=== PATIENT | female | born 1995 | race Caucasian/White ===

== ENCOUNTER 2022-03-30 11:45 | Inpatient (IN) ==
--- NOTE | 2022-03-30 11:46 | Emergency Department Note ---
Impression & Plan Depression with suicidal ideation ED Provider Note NAME: FLORIAN HE AGE: 26 SEX: F : 1995 ARRIVES VIA: Ambulance INFORMANT: Patient, ED PROVIDER(S): Angel Garcia MD CHIEF COMPLAINT: Suicidal ideation MEDICAL DECISION MAKING: Patient presented to concern for suicidal initiation ideation. The patient did have blood work completed. The patient has a normal white count H&H. The patient does have mild thrombocytosis at 409. Kidney function is unremarkable. Urinalysis with no signs of obvious infection. Tox screen negative. COVID-negative. Patient was seen medically cleared seen and evaluated by the psych manager rn case and referral was made. The patient was accepted for inpatient treatment through [facility] Prior /Outside records reviewed: None Differential diagnosis: Mood disorder, infection, hypoglycemia, electrolyte abnormalities, cardiac sources, intracerebral event, toxicologic, trauma, neurologic, as well as other pathologies. HPI: Patient presents due to concern for depressed mood and hopelessness. The patient has had associated suicidal ideation with fleeting thoughts states that she would not want to and does not want to but she has had thoughts about slitting her throat bleeding Bialis or even driving her car off of a farideh. Patient does have a known history of depression and is prescribed Wellbutrin and surgeries recently started on BuSpar. Patient denies any alcohol or tobacco use. The patient is employed and states that her job is going well. Patient states she has had poor sleep and appetite. Patient does complain of hopelessness there are concerns as her long-term boyfriend has had some chronic issues to he did have a recent inpatient stay but still feels like he did not get the help that he needs that she feels as though she is not can get the help that she needs and the patient has tried to call for outpatient follow-up but has not been on has been unable to obtain additional help. Patient denies any access to guns or weapons. No prior history of attempts of self-harm. Patient denies any HI or AVH. PAST MEDICAL HISTORY: See Below PAST SURGICAL HISTORY: See Below SOCIAL HISTORY: See Below HOME MEDICATIONS: See Below ALLERGIES: See Below VITALS: See Below PHYSICAL EXAMINATION: GENERAL: Tearful, nontoxic. EYE EXAM: Normal conjunctiva. PERRL, no anisocoria and EOM's grossly intact w/o pain. NECK: Supple, no nuchal rigidity, no adenopathy, non-tender. No signs of meningismus. FROM of the neck with good chin to chest and neck extension. No stridor. LUNGS: Clear to auscultation. Normal chest wall mechanics. HEART: NSR, no MRG. ABDOMEN: Abdomen soft, non-tender, normo-active bowel sounds, no masses, no rebound or guarding. BACK: No CVA TTP. SKIN: No rashes and no bruising. UPPER EXTREMITIES: Upper extremities are grossly normal. LOWER EXTREMITIES: Grossly normal, no edema. NEURO EXAM: A&O x3, cranial nerves II-XII grossly intact, normal speech, moves all 4 extremities. Psych: Tearful, positive SI, negative HI or AVH. Past Med/Surg History Medical History Depression Surgical History No pertinent past surgical history Social History Smoking Status: Never smoker Hx Alcohol Use: No Hx Substance Use: No Preferred Language: Angolan Communication Ability: Effective Field Investigator Required: No Beliefs That Will Affect Care: None Feels Safe at Home: Yes Gender Identity: Female Assistive Devices: None Allergies Allergies Allergy/AdvReac Type Severity Reaction Status Date / Time meloxicam Allergy Hives Verified 03/30/22 13:06 Home Meds Home Medications Medication Instructions Recorded Confirmed bupropion HCl 300 mg 24 hr tablet, 300 mg PO QAM 03/30/22 03/30/22 extended release buspirone 5 mg tablet 5 mg PO BID 03/30/22 03/30/22 hydroxyzine HCl 25 mg tablet 25 mg PO TID PRN Anxiety 03/30/22 03/30/22 loratadine 10 mg tablet (Claritin) 10 mg PO DAILY 03/30/22 03/30/22 Results & Data (ED) Vital Signs Vital Signs - 24 hr 03/30/22 11:33 03/30/22 11:33 03/30/22 13:33 Temperature 37.2 C Temperature Source Oral Pulse Rate 105 H Pulse Rate [Finger] 90 Pulse Rhythm Regular Pulse Rhythm [Finger] Regular Pulse Strength Normal Pulse Strength [Finger] Normal Respiratory Rate 22 22 18 Respiratory Effort / Characteristics Non-Labored Non-Labored Non-Labored Respiratory Depth Normal Normal Normal Respiratory Pattern Regular Regular Regular Blood Pressure 145/104 H Blood Pressure [Right Arm] 138/84 Blood Pressure Mean 117 Blood Pressure Mean [Right Arm] 102 Pulse Oximetry 97 99 Oxygen Delivery Method Room Air Room Air Sepsis Recent Fever Within 48 Hours No Sepsis New/Unexplained Change in Mental Status No Sepsis Action Taken by Nursing No Action Required Laboratory Data 03/30/22 12:00 03/30/22 12:00 Lab Results 03/30/22 03/30/22 03/30/22 Range/Units 12:00 12:00 12:00 WBC 7.68 (4.8-10.8) K/ul RBC 5.12 (3.93-5.22) M/uL Hgb 14.7 (12.0-16.0) g/dl Hct 42.3 (34.1-44.9) % MCV 82.6 (80.0-100.0) fL MCH 28.7 (25.0-34.0) pg MCHC 34.8 (32.0-36.0) g/dL RDW Std Deviation 37.4 (36.4-46.3) fL RDW Coeff of Shabbir 12.4 (11.5-14.5) % Plt Count 409 H (130-400) K/uL MPV 9.1 L (9.4-12.3) fL Immature Gran % (Auto) 0.3 % Neut % (Auto) 75.1 % Lymph % (Auto) 17.4 % Cherry % (Auto) 6.5 % Eos % (Auto) 0.3 % Baso % (Auto) 0.4 % Neut # (Auto) 5.77 (1.4-6.5) K/uL Lymph # (Auto) 1.34 (1.2-3.4) K/uL Cherry # (Auto) 0.50 (0.24-0.82) K/uL Eos # (Auto) 0.02 (0-0.50) K/uL Baso # (Auto) 0.03 (0-0.2) K/uL Immature Gran # (Auto) 0.02 (0.00-0.02) K/uL Sodium 139 (136-145) mmol/L Potassium 3.5 (3.5-5.1) mmol/L Chloride 106 (98-107) mmol/L Carbon Dioxide 25 (21-32) mmol/L Anion Gap 8 (3-11) BUN 7 (6-23) mg/dl Creatinine 0.84 (0.6-1.2) mg/dl Est Cr Clr Drug Dosing 108.8 ml/min Est GFR ( Amer) 110.4 ml/min Est GFR (Non-Af Amer) 95.3 ml/min BUN/Creatinine Ratio 8.3 L (10-20) Glucose 90 (70-99(Fasting)) mg/dl Calcium 9.4 (8.5-10.1) mg/dl Total Bilirubin 1.2 H (0.2-1.0) mg/dl AST 14 (13-39) U/L ALT 9 (7-52) U/L Alkaline Phosphatase 60 (34-104) U/L Total Protein 7.5 (6.0-8.3) gm/dl Albumin 5.0 (3.4-5.0) gm/dl Globulin 2.5 (2.5-4.0) gm/dl Albumin/Globulin Ratio 2.0 (0.9-2) TSH 0.915 (0.300-4.500) uIu/ml Urine Color Urine Appearance (Clear) Urine pH (4.5-7.5) Ur Specific Midway (1.000-1.030) Urine Protein (Negative) Urine Glucose (UA) (Negative) Urine Ketones (Negative) Urine Blood (Negative) Urine Nitrite (Negative) Urine Bilirubin (Negative) Urine Urobilinogen (Negative) Ur Leukocyte Esterase (Negative) Urine WBC (Auto) (0-5) /hpf Urine RBC (Auto) (0-4) /hpf U Hyaline Cast (Auto) (0-5) /lpf U Epithel Cells (Auto) (0-5) /lpf Urine Bacteria (Auto) (Negative) Urine Test (Negative) Salicylates (3.0-30) mg/dl Urine Opiates Screen (Neg) Ur Methadone, Qual (Neg) Acetaminophen (10-30) ug/ml Urine Barbiturates (Neg) Ur Phencyclidine (PCP) (Neg) U Amphetamin/Meth Scrn (Neg) MDMA (Ecstasy) Screen (Neg) U Benzodiazepines Scrn (Neg) Ur Cocaine Metabolite (Neg) U Marijuana (THC) Screen (Neg) Ethyl Alcohol mg/dL (<10.0) mg/dl SARS-CoV-2, RNA, NAAT (NEGATIVE) 03/30/22 03/30/22 03/30/22 Range/Units 12:00 12:00 12:00 WBC (4.8-10.8) K/ul RBC (3.93-5.22) M/uL Hgb (12.0-16.0) g/dl Hct (34.1-44.9) % MCV (80.0-100.0) fL MCH (25.0-34.0) pg MCHC (32.0-36.0) g/dL RDW Std Deviation (36.4-46.3) fL RDW Coeff of Shabbir (11.5-14.5) % Plt Count (130-400) K/uL MPV (9.4-12.3) fL Immature Gran % (Auto) % Neut % (Auto) % Lymph % (Auto) % Cherry % (Auto) % Eos % (Auto) % Baso % (Auto) % Neut # (Auto) (1.4-6.5) K/uL Lymph # (Auto) (1.2-3.4) K/uL Cherry # (Auto) (0.24-0.82) K/uL Eos # (Auto) (0-0.50) K/uL Baso # (Auto) (0-0.2) K/uL Immature Gran # (Auto) (0.00-0.02) K/uL Sodium (136-145) mmol/L Potassium (3.5-5.1) mmol/L Chloride (98-107) mmol/L Carbon Dioxide (21-32) mmol/L Anion Gap (3-11) BUN (6-23) mg/dl Creatinine (0.6-1.2) mg/dl Est Cr Clr Drug Dosing ml/min Est GFR ( Amer) ml/min Est GFR (Non-Af Amer) ml/min BUN/Creatinine Ratio (10-20) Glucose (70-99(Fasting)) mg/dl Calcium (8.5-10.1) mg/dl Total Bilirubin (0.2-1.0) mg/dl AST (13-39) U/L ALT (7-52) U/L Alkaline Phosphatase (34-104) U/L Total Protein (6.0-8.3) gm/dl Albumin (3.4-5.0) gm/dl Globulin (2.5-4.0) gm/dl Albumin/Globulin Ratio (0.9-2) TSH (0.300-4.500) uIu/ml Urine Color Yellow Urine Appearance Clear (Clear) Urine pH 6.0 (4.5-7.5) Ur Specific [place]way 1.019 (1.000-1.030) Urine Protein Negative (Negative) Urine Glucose (UA) Negative (Negative) Urine Ketones 1+ H (Negative) Urine Blood Negative (Negative) Urine Nitrite Negative (Negative) Urine Bilirubin Negative (Negative) Urine Urobilinogen Negative (Negative) Ur Leukocyte Esterase Trace H (Negative) Urine WBC (Auto) 1-5 (0-5) /hpf Urine RBC (Auto) 0-4 (0-4) /hpf U Hyaline Cast (Auto) 1-5 (0-5) /lpf U Epithel Cells (Auto) 10-20 H (0-5) /lpf Urine Bacteria (Auto) Negative (Negative) Urine Test (Negative) Salicylates < 3.0 L (3.0-30) mg/dl Urine Opiates Screen (Neg) Ur Methadone, Qual (Neg) Acetaminophen < 3 L (10-30) ug/ml Urine Barbiturates (Neg) Ur Phencyclidine (PCP) (Neg) U Amphetamin/Meth Scrn (Neg) MDMA (Ecstasy) Screen (Neg) U Benzodiazepines Scrn (Neg) Ur Cocaine Metabolite (Neg) U Marijuana (THC) Screen (Neg) Ethyl Alcohol mg/dL < 10.0 (<10.0) mg/dl SARS-CoV-2, RNA, NAAT (NEGATIVE) 03/30/22 03/30/22 03/30/22 Range/Units 12:00 12:00 12:00 WBC (4.8-10.8) K/ul RBC (3.93-5.22) M/uL Hgb (12.0-16.0) g/dl Hct (34.1-44.9) % MCV (80.0-100.0) fL MCH (25.0-34.0) pg MCHC (32.0-36.0) g/dL RDW Std Deviation (36.4-46.3) fL RDW Coeff of Shabbir (11.5-14.5) % Plt Count (130-400) K/uL MPV (9.4-12.3) fL Immature Gran % (Auto) % Neut % (Auto) % Lymph % (Auto) % Cherry % (Auto) % Eos % (Auto) % Baso % (Auto) % Neut # (Auto) (1.4-6.5) K/uL Lymph # (Auto) (1.2-3.4) K/uL Cherry # (Auto) (0.24-0.82) K/uL Eos # (Auto) (0-0.50) K/uL Baso # (Auto) (0-0.2) K/uL Immature Gran # (Auto) (0.00-0.02) K/uL Sodium (136-145) mmol/L Potassium (3.5-5.1) mmol/L Chloride (98-107) mmol/L Carbon Dioxide (21-32) mmol/L Anion Gap (3-11) BUN (6-23) mg/dl Creatinine (0.6-1.2) mg/dl Est Cr Clr Drug Dosing ml/min Est GFR ( Amer) ml/min Est GFR (Non-Af Amer) ml/min BUN/Creatinine Ratio (10-20) Glucose (70-99(Fasting)) mg/dl Calcium (8.5-10.1) mg/dl Total Bilirubin (0.2-1.0) mg/dl AST (13-39) U/L ALT (7-52) U/L Alkaline Phosphatase (34-104) U/L Total Protein (6.0-8.3) gm/dl Albumin (3.4-5.0) gm/dl Globulin (2.5-4.0) gm/dl Albumin/Globulin Ratio (0.9-2) TSH (0.300-4.500) uIu/ml Urine Color Urine Appearance (Clear) Urine pH (4.5-7.5) Ur Specific Midway (1.000-1.030) Urine Protein (Negative) Urine Glucose (UA) (Negative) Urine Ketones (Negative) Urine Blood (Negative) Urine Nitrite (Negative) Urine Bilirubin (Negative) Urine Urobilinogen (Negative) Ur Leukocyte Esterase (Negative) Urine WBC (Auto) (0-5) /hpf Urine RBC (Auto) (0-4) /hpf U Hyaline Cast (Auto) (0-5) /lpf U Epithel Cells (Auto) (0-5) /lpf Urine Bacteria (Auto) (Negative) Urine Test Negative (Negative) Salicylates (3.0-30) mg/dl Urine Opiates Screen Neg (Neg) Ur Methadone, Qual Neg (Neg) Acetaminophen (10-30) ug/ml Urine Barbiturates Neg (Neg) Ur Phencyclidine (PCP) Neg (Neg) U Amphetamin/Meth Scrn Neg (Neg) MDMA (Ecstasy) Screen Neg (Neg) U Benzodiazepines Scrn Neg (Neg) Ur Cocaine Metabolite Neg (Neg) U Marijuana (THC) Screen Neg (Neg) Ethyl Alcohol mg/dL (<10.0) mg/dl SARS-CoV-2, RNA, NAAT NEGATIVE (NEGATIVE) Discharge Plan Visit Data Chief Complaint: Mental Health Evaluation ED Provider: Angel Garcia Discharge Problem: Depression with suicidal ideation Patient Disposition: Admitted As Inpatient Discharge Instructions Interventions: ED Discharge Assessment Last Done: 03/30/22 16:31
[2022-03-30 12:28] LABS: Appearance Urine Clear (Clear); Bacteria Urine Automated Negative (Negative); Bilirubin Urine Negative (Negative); Blood Urine Negative (Negative); Color Urine Yellow; Glucose Urine UA Negative (Negative); Ketones Urine 1+ (Negative); Leukocyte Esterase Urine Trace (Negative); Nitrite Urine Negative (Negative); Protein Urine Negative (Negative); RBC Urine Automated 0-4 /hpf (0-4); Specific Gravity Urine 1.019 (1.000-1.030); Urobilinogen Urine Negative (Negative)
[2022-03-30 12:37] LABS: Basophils # (auto) 0.03 K/uL (0-0.2); Basophils % (auto) 0.4 %; Eosinophils # (auto) 0.02 K/uL (0-0.50); Eosinophils % (auto) 0.3 %; Hematocrit (blood only) 42.3 % (34.1-44.9); Hemoglobin 14.7 g/dl (12.0-16.0); Immature Granulocytes # (auto) 0.02 K/uL (0.00-0.02); Immature Granulocytes % (auto) 0.3 %; Lymphocytes # (auto) 1.34 K/uL (1.2-3.4); Lymphocytes % (auto) 17.4 %; Mean Corpuscular Hemoglobin 28.7 pg (25.0-34.0); Mean Corpuscular Hgb Conc 34.8 g/dL (32.0-36.0); Mean Corpuscular Volume 82.6 fL (80.0-100.0); Mean Platelet Volume 9.1 fL (9.4-12.3); Monocytes % (auto) 6.5 %; Neutrophils # (auto) 5.77 K/uL (1.4-6.5); Neutrophils % (auto) 75.1 %; Platelet Count 409 K/uL (130-400); RDW Coefficient of Variation 12.4 % (11.5-14.5); RDW Standard Deviation 37.4 fL (36.4-46.3); Red Blood Count 5.12 M/uL (3.93-5.22); White Blood Count 7.68 K/ul (4.8-10.8)
[2022-03-30 12:51] LABS: Acetaminophen < 3 ug/ml (10-30); BUN Creatinine Ratio 8.3 (10-20); Bilirubin,Total 1.2 mg/dl (0.2-1.0); Calcium 9.4 mg/dl (8.5-10.1); Creatinine Clr Calc Pharmacy 108.8 ml/min; Est GFR (African American) 110.4 ml/min; Est GFR (Non-African American) 95.3 ml/min; Globulin 2.5 gm/dl (2.5-4.0); Potassium 3.5 mmol/L (3.5-5.1); Salicylate < 3.0 mg/dl (3.0-30); Total Protein 7.5 gm/dl (6.0-8.3)
[2022-03-30 13:14] LABS: Amphetamines+Metham, Urine Neg (Neg); Barbiturates, Urine Neg (Neg); Benzodiazepine, Urine Neg (Neg); Cocaine, Urine Neg (Neg); MDMA (Ecstacy), Urine Neg (Neg); Methadone, Urine Neg (Neg); Opiate, Urine Neg (Neg); Phencyclidine, Urine Neg (Neg)
[2022-03-30 13:30] LABS: Pregnancy Test, Urine Negative (Negative)
[2022-03-30] MEDS ORDERED: MAGNESIUM HYDROXIDE SUSP 30 ML UDC PO PRN (15:35)
[2022-03-30] MEDS ORDERED: BISMUTH SUBSALICYLATE LIQD 236 ML PO PRN (15:35)
[2022-03-30] MEDS ORDERED: SODIUM CHLORIDE 0.65% NA SOLN 45 ML (OCEAN) PRN (15:35)
[2022-03-30] MEDS ORDERED: ACETAMINOPHEN 325 MG TAB PO PRN (15:35)
[2022-03-30] MEDS ORDERED: hydrOXYzine HCl 25 MG TAB PO PRN (15:35)
[2022-03-30] MEDS ORDERED: ALUMINUM/MAGNESIUM SUSP 30 ML UDC PO PRN (15:35)
[2022-03-30] MEDS: hydrOXYzine HCl 25 MG TAB PO PRN (21:43)
--- NOTE | 2022-03-31 12:49 | Psychiatric Consultation ---
Date of Consultation March 31, 2022 Psych History History of Present Illness Risks/benefits/alternatives reviewed lithium for mood stabilization. Discussion included but was not limited to risks of toxicity in overdose and need for ongoing blood monitoring (levels, kidney function, and thyroid). The patient was made aware to avoid regular use of NSAIDs as can increase levels and that lithium may need to be held during GI or other illnesses that result in dehyrdation. LFORIAN HE is a 26-year-old F who currently lives in alone with , has a history of , and was admitted on 03/30/22 15:35 on a 201 voluntary 302 involuntary commitment for . Past Psychiatric History Current Psychiatric Diagnosis: MDD with SI Do You Have Access To A Gun?: No History of Previous Suicide Attempt: No Allergies Allergy/AdvReac Type Severity Reaction Status Date / Time meloxicam Allergy Hives Verified 03/30/22 13:06 Home Medications Medication Instructions Recorded Confirmed Type bupropion HCl 300 mg 24 hr tablet, 300 mg PO QAM 03/30/22 03/30/22 History extended release buspirone 5 mg tablet 5 mg PO BID 03/30/22 03/30/22 History hydroxyzine HCl 25 mg tablet 25 mg PO TID PRN Anxiety 03/30/22 03/30/22 History loratadine 10 mg tablet (Claritin) 10 mg PO DAILY 03/30/22 03/30/22 History Patient History Medical History Depression Surgical History No pertinent past surgical history Social History Smoking Status: Never smoker Hx Alcohol Use: No Hx Substance Use: No Preferred Language: [place] Communication Ability: Effective Photographic Restorer Required: No Beliefs That Will Affect Care: None Feels Safe at Home: Yes Gender Identity: Female Assistive Devices: None Physical Exam Mental Examination: Affect: Blunted Vital Signs (Past 24 Hours): Last Vital Signs Temp 36.8 C 03/31/22 06:37 Pulse 94 H 03/31/22 06:38 Resp 16 03/31/22 06:37 BP 118/77 03/31/22 06:38 Pulse Ox 99 03/30/22 16:26 O2 Del Method 03/30/22 16:26 Review of Systems All systems reviewed & are unremarkable except as noted in HPI & below Eyes: no tunnel vision (when seeing kangaroos) Results & Data (PSY) Laboratory Results 03/30/22 03/30/22 03/30/22 Range/Units 12:00 12:00 12:00 Sodium (136-145) mmol/L Potassium (3.5-5.1) mmol/L Chloride (98-107) mmol/L Carbon Dioxide (21-32) mmol/L Anion Gap (3-11) BUN (6-23) mg/dl Creatinine (0.6-1.2) mg/dl Est Cr Clr Drug Dosing ml/min Est GFR ( Amer) ml/min Est GFR (Non-Af Amer) ml/min BUN/Creatinine Ratio (10-20) Glucose (70-99(Fasting)) mg/dl Calcium (8.5-10.1) mg/dl Total Bilirubin (0.2-1.0) mg/dl AST (13-39) U/L ALT (7-52) U/L Alkaline Phosphatase (34-104) U/L Total Protein (6.0-8.3) gm/dl Albumin (3.4-5.0) gm/dl Globulin (2.5-4.0) gm/dl Albumin/Globulin Ratio (0.9-2) TSH (0.300-4.500) uIu/ml Urine Test Negative (Negative) Salicylates (3.0-30) mg/dl Urine Opiates Screen Neg (Neg) Ur Methadone, Qual Neg (Neg) Acetaminophen (10-30) ug/ml Urine Barbiturates Neg (Neg) Ur Phencyclidine (PCP) Neg (Neg) U Amphetamin/Meth Scrn Neg (Neg) MDMA (Ecstasy) Screen Neg (Neg) U Benzodiazepines Scrn Neg (Neg) Ur Cocaine Metabolite Neg (Neg) U Marijuana (THC) Screen Neg (Neg) Ethyl Alcohol mg/dL < 10.0 (<10.0) mg/dl 03/30/22 03/30/22 03/30/22 Range/Units 12:00 12:00 12:00 Sodium 139 (136-145) mmol/L Potassium 3.5 (3.5-5.1) mmol/L Chloride 106 (98-107) mmol/L Carbon Dioxide 25 (21-32) mmol/L Anion Gap 8 (3-11) BUN 7 (6-23) mg/dl Creatinine 0.84 (0.6-1.2) mg/dl Est Cr Clr Drug Dosing 108.8 ml/min Est GFR ( Amer) 110.4 ml/min Est GFR (Non-Af Amer) 95.3 ml/min BUN/Creatinine Ratio 8.3 L (10-20) Glucose 90 (70-99(Fasting)) mg/dl Calcium 9.4 (8.5-10.1) mg/dl Total Bilirubin 1.2 H (0.2-1.0) mg/dl AST 14 (13-39) U/L ALT 9 (7-52) U/L Alkaline Phosphatase 60 (34-104) U/L Total Protein 7.5 (6.0-8.3) gm/dl Albumin 5.0 (3.4-5.0) gm/dl Globulin 2.5 (2.5-4.0) gm/dl Albumin/Globulin Ratio 2.0 (0.9-2) TSH 0.915 (0.300-4.500) uIu/ml Urine Test (Negative) Salicylates < 3.0 L (3.0-30) mg/dl Urine Opiates Screen (Neg) Ur Methadone, Qual (Neg) Acetaminophen < 3 L (10-30) ug/ml Urine Barbiturates (Neg) Ur Phencyclidine (PCP) (Neg) U Amphetamin/Meth Scrn (Neg) MDMA (Ecstasy) Screen (Neg) U Benzodiazepines Scrn (Neg) Ur Cocaine Metabolite (Neg) U Marijuana (THC) Screen (Neg) Ethyl Alcohol mg/dL (<10.0) mg/dl Medications Administered Acetaminophen (Acetaminophen 325 Mg Tab) 650 mg PO Q4H PRN PRN Reason: Headache or Minor Fever Stop: 04/29/22 15:34 Last Admin: 03/30/22 17:46 Dose: 650 mg Documented By: DINORAH Hydroxyzine HCl (Hydroxyzine Hcl 25 Mg Tab) 50 mg PO HSZ PRN PRN Reason: Insomnia Stop: 04/29/22 15:34 Last Admin: 03/30/22 21:43 Dose: 50 mg Documented By: RDS Coding Level of Care Code Established Pt INP/OBS CONSULT LVL 3, 45 MIN Patient Type Established History Expanded Problem Focused Exam Problem Focused Medical Decision Making Moderate Complexity
[2022-03-31] MEDS ORDERED: LORazepam 0.5 MG TAB PO PRN (13:09)
--- NOTE | 2022-03-31 13:26 | History & Physical ---
Date of Service March 31, 2022 Impression / Recommendations Impression 26 yo female with a history of nonspecific depression and anxiety, briefly in therapy last year following an ED visit for panic, presented with SI in the context of stress reactive to boyfriend's health issues. (1) Depression with suicidal ideation: Plan The patient was admitted to the [facility] ([facility] mental health unit) on q15 min checks (behavioral with suicide precautions) for safety. The patient will participate in group, recreational, and milieu therapies and will be offered additional individual and family sessions as clinically appropriate. Pending availability of past med trials, will continue Wellbutrin XL 300 mg po qam. The patient responded well to this in the past and denies hx of seizures or ED symptoms. She has only been on the higher dose for 1 week. Given possible activation, d/c Buspar in favor of temporary use of prn Ativan 0.5 mg. Patient aware controlled/habit forming, and unclear if will be provided on discharge. Inventory Assets Strengths: intelligent, family oriented Needs: outpatient therapy, support in coping Suicide Risk Level Suicide Risk Level: High-Moderate (q15 min suicide checks) Risk Factors Assessment : Yes Do You Have Access To A Gun?: No Mental Health Diagnoses: Yes Substance Use Disorders: No Previous Attempt: No Family History of Suicide: No Previous Psychiatric Hospitalization: No Protective Factors Assessment Employed: Yes ([employer] works from home) Stable Relationships: Yes (but stressor) Supportive Family: Yes Psychiatric History Identifying Data FLORIAN HE is a 26-year-old F who currently lives in [place], has a history of depression and anxiety since high school, and was admitted on 03/30/22 15:35 on a 201 voluntary commitment for SI. Chief Complaint "There is just so much all at once, I needed to focus on me for a bit". History of Present Illness Patient lives with her boyfriend of 6+ years. He has a history of cancer and has been dealing with a variety of somatic issues and was recently psychiatrically hospitalized for severe anxiety. He has since had a CT scan that showed a possible lesion on his liver which needs additional work up. This was "on top of everything else." Yesica reports feeling emotionally exhausted from trying to support him, her own fears about his conditon, and her own mental health issues. 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 They moved to [place] this summer for his work and she feels more isolated there as further from family in the [facility] area. There is enough concern about his safety/ability to function that she arranged for her mother to stay with him so she could seek treatment. The patient admitted in ED to having thoughts to cut or throat or crash her car. She does not have any history of SIB. Yesica has been tried on various antidepressants since high school and has done best on Wellbutrin, never previously experiencing SI on it despite taking it for years. She discontinued the 300 mg dose of Wellbutrin during COVID as she reports running out of refills and restarted at 150 mg a few months ago. She met with her PCP last week and the dose was increased to address worsening mood, tearfulness, anxiety, disrupted concentration making it harder to keep up with work and the dose was titrated. She was started on Buspar at the same time and perhaps is experiencing some jitteriness despite the low dose as she adds that "I wake up in a panic out of nowhere." Past Psychiatric History Previous Psych History: therapy last year via Telehealth (?[facility] provider) but didn't connect. Current Psychiatric Diagnosis: MDD with SI Outpatient Services: none other than meds per PCP Previous Psych Admissions: none Do You Have Access To A Gun?: No History of Previous Suicide Attempt: No Past Medication Trials: likely several SSRIs (will provide list since 2012), Ativan prn helpful in past and used vary sparingly as aware controlled substance. Allergies Allergy/AdvReac Type Severity Reaction Status Date / Time meloxicam Allergy Hives Verified 03/30/22 13:06 Home Medications Medication Instructions Recorded Confirmed Type bupropion HCl 300 mg 24 hr tablet, 300 mg PO QAM 03/30/22 03/30/22 History extended release buspirone 5 mg tablet 5 mg PO BID 03/30/22 03/30/22 History hydroxyzine HCl 25 mg tablet 25 mg PO TID PRN Anxiety 03/30/22 03/30/22 History loratadine 10 mg tablet (Claritin) 10 mg PO DAILY 03/30/22 03/30/22 History Family History Family History of: Doesn't Know Alcohol History Hx of Alcohol Use Over the Past 12 Months: No AUDIT Total Score: 0 Smoking Use Have You Smoked or Used Tobacco Products in the Last 30 Days: No Smoking Status: Never smoker Substance History Hx of Prescription Med Misuse Over the Past 12 Months: No Hx of Over the Counter Med Misuse Over the Past 12 Months: No Hx of Inhalent Misuse Over the Past 12 Months: No Hx of Organic Substance Use Over the Past 12 Months: No Hx of Illegal Substances/Street Drug Use Over Past 12 Months: No Problems as a Result of Past Substance Use: None Identified Personal History Living Arrangements: Home Highest Grade Completed: College Employment Status: Manager Emergency Employed Marital Status: Living w/ Signif. Other Number Of Children: 0 Beliefs That Will Affect Care: None Current Legal Problems: No Hx Traumatic Life Events: Yes (byfd hx cancer and now possible met) Patient History Medical History Depression Surgical History No pertinent past surgical history Social History Smoking Status: Never smoker Hx Alcohol Use: No Hx Substance Use: No Preferred Language: Uzbek Communication Ability: Effective Hostage Negotiator Required: No Beliefs That Will Affect Care: None Feels Safe at Home: Yes Gender Identity: Female Assistive Devices: None Review of Systems Review of Systems: All systems reviewed & are unremarkable except as noted in HPI & below Physical Exam Psychiatric: Orientation: alert and oriented x 3 Apperance: appropriately dressed and appropriately groomed Eye Contact: good eye contact Motor Behavior: no abnormal motor movements Speech: normal rate/rhythm/volume of speech Affect: + depressed affect Mood: + depressed mood Thought P rocess: goal directed thought process Thought Content: reality based without delusions Suicidal Thoughts: + reports suicidal thoughts (intermittent, passive, unable to safety plan) Homicidal Thoughts: denies homicidal thoughts Hallucinations: no auditory hallucinations and no visual hallucinations Cognition: attention grossly intact and language grossly intact Estimated Intelligence: consistent with education level Insight: + fair insight Judgement: + fair judgement Vital Signs (Past 24 Hours): Last Vital Signs Temp 36.8 C 03/31/22 06:37 Pulse 94 H 03/31/22 06:38 Resp 16 03/31/22 06:37 BP 118/77 03/31/22 06:38 Pulse Ox 99 03/30/22 16:26 O2 Del Method 03/30/22 16:26 Exam Statement: A physical exam was performed in the ED by Dr. Garcia for the purposes of medical clearance. I accept that physical as correct and adequate for the purposes of the inpatient physical exam. Results & Data ([facility]) Laboratory Results Labs 03/30/22 03/30/22 03/30/22 12:00 12:00 12:00 WBC 7.68 RBC 5.12 Hgb 14.7 Hct 42.3 MCV 82.6 MCH 28.7 MCHC 34.8 RDW Std Deviation 37.4 RDW Coeff of Shabbir 12.4 Plt Count 409 H MPV 9.1 L Immature Gran % (Auto) 0.3 Neut % (Auto) 75.1 Lymph % (Auto) 17.4 [place] % (Auto) 6.5 Eos % (Auto) 0.3 Baso % (Auto) 0.4 Neut # (Auto) 5.77 Lymph # (Auto) 1.34 [place] # (Auto) 0.50 Eos # (Auto) 0.02 Baso # (Auto) 0.03 Immature Gran # (Auto) 0.02 Sodium 139 Potassium 3.5 Chloride 106 Carbon Dioxide 25 Anion Gap 8 BUN 7 Creatinine 0.84 Est Cr Clr Drug Dosing 108.8 Est GFR ( Amer) 110.4 Est GFR (Non-Af Amer) 95.3 BUN/Creatinine Ratio 8.3 L Glucose 90 Calcium 9.4 Total Bilirubin 1.2 H AST 14 ALT 9 Alkaline Phosphatase 60 Total Protein 7.5 Albumin 5.0 Globulin 2.5 Albumin/Globulin Ratio 2.0 TSH 0.915 Urine Color Urine Appearance Urine pH Ur Specific Brea Urine Protein Urine Glucose (UA) Urine Ketones Urine Blood Urine Nitrite Urine Bilirubin Urine Urobilinogen Ur Leukocyte Esterase Urine WBC (Auto) Urine RBC (Auto) U Hyaline Cast (Auto) U Epithel Cells (Auto) Urine Bacteria (Auto) Urine Test Salicylates Urine Opiates Screen Ur Methadone, Qual Acetaminophen Urine Barbiturates Ur Phencyclidine (PCP) U Amphetamin/Meth Scrn MDMA (Ecstasy) Screen U Benzodiazepines Scrn Ur Cocaine Metabolite U Marijuana (THC) Screen Ethyl Alcohol mg/dL SARS-CoV-2, RNA, NAAT 03/30/22 03/30/22 03/30/22 12:00 12:00 12:00 WBC RBC Hgb Hct MCV MCH MCHC RDW Std Deviation RDW Coeff of Shabbir Plt Count MPV Immature Gran % (Auto) Neut % (Auto) Lymph % (Auto) [place] % (Auto) Eos % (Auto) Baso % (Auto) Neut # (Auto) Lymph # (Auto) [place] # (Auto) Eos # (Auto) Baso # (Auto) Immature Gran # (Auto) Sodium Potassium Chloride Carbon Dioxide Anion Gap BUN Creatinine Est Cr Clr Drug Dosing Est GFR ( Amer) Est GFR (Non-Af Amer) BUN/Creatinine Ratio Glucose Calcium Total Bilirubin AST ALT Alkaline Phosphatase Total Protein Albumin Globulin Albumin/Globulin Ratio TSH Urine Color Yellow Urine Appearance Clear Urine pH 6.0 Ur Specific Bre[place] 1.019 Urine Protein Negative Urine Glucose (UA) Negative Urine Ketones 1+ H Urine Blood Negative Urine Nitrite Negative Urine Bilirubin Negative Urine Urobilinogen Negative Ur Leukocyte Esterase Trace H Urine WBC (Auto) 1-5 Urine RBC (Auto) 0-4 U Hyaline Cast (Auto) 1-5 U Epithel Cells (Auto) 10-20 H Urine Bacteria (Auto) Negative Urine Test Salicylates < 3.0 L Urine Opiates Screen Ur Methadone, Qual Acetaminophen < 3 L Urine Barbiturates Ur Phencyclidine (PCP) U Amphetamin/Meth Scrn MDMA (Ecstasy) Screen U Benzodiazepines Scrn Ur Cocaine Metabolite U Marijuana (THC) Screen Ethyl Alcohol mg/dL < 10.0 SARS-CoV-2, RNA, NAAT 03/30/22 03/30/22 03/30/22 12:00 12:00 12:00 WBC RBC Hgb Hct MCV MCH MCHC RDW Std Deviation RDW Coeff of Shabbir Plt Count MPV Immature Gran % (Auto) Neut % (Auto) Lymph % (Auto) [place] % (Auto) Eos % (Auto) Baso % (Auto) Neut # (Auto) Lymph # (Auto) [place] # (Auto) Eos # (Auto) Baso # (Auto) Immature Gran # (Auto) Sodium Potassium Chloride Carbon Dioxide Anion Gap BUN Creatinine Est Cr Clr Drug Dosing Est GFR ( Amer) Est GFR (Non-Af Amer) BUN/Creatinine Ratio Glucose Calcium Total Bilirubin AST ALT Alkaline Phosphatase Total Protein Albumin Globulin Albumin/Globulin Ratio TSH Urine Color Urine Appearance Urine pH Ur Specific Bre[place] Urine Protein Urine Glucose (UA) Urine Ketones Urine Blood Urine Nitrite Urine Bilirubin Urine Urobilinogen Ur Leukocyte Esterase Urine WBC (Auto) Urine RBC (Auto) U Hyaline Cast (Auto) U Epithel Cells (Auto) Urine Bacteria (Auto) Urine Test Negative Salicylates Urine Opiates Screen Neg Ur Methadone, Qual Neg Acetaminophen Urine Barbiturates Neg Ur Phencyclidine (PCP) Neg U Amphetamin/Meth Scrn Neg MDMA (Ecstasy) Screen Neg U Benzodiazepines Scrn Neg Ur Cocaine Metabolite Neg U Marijuana (THC) Screen Neg Ethyl Alcohol mg/dL SARS-CoV-2, RNA, NAAT NEGATIVE Current Inpatient Medications Current Inpatient Medications: Current Inpatient Medications Acetaminophen (Acetaminophen 325 Mg Tab) 650 mg PO Q4H PRN PRN Reason: Headache or Minor Fever Stop: 04/29/22 15:34 Last Admin: 03/30/22 17:46 Dose: 650 mg Al Hydrox/Mg Hydrox/Simethicone (Aluminum/Magnesium Susp 30 Ml Udc) 30 ml PO Q4H PRN PRN Reason: GI Upset Stop: 04/29/22 15:34 Bismuth Subsalicylate (Bismuth Subsalicylate Liqd 236 Ml) 15 ml PO PRN PRN PRN Reason: Loose Stool Stop: 04/29/22 15:34 Bupropion HCl (Bupropion Xl 300 Mg Tabcr) 300 mg PO QAM YAMILEX Stop: 05/01/22 08:59 Hydroxyzine HCl (Hydroxyzine Hcl 25 Mg Tab) 50 mg PO HSZ PRN PRN Reason: Insomnia Stop: 04/29/22 15:34 Last Admin: 03/30/22 21:43 Dose: 50 mg Loratadine (Loratadine 10 Mg Tab) 10 mg PO DAILY YAMILEX Stop: 04/30/22 13:14 Lorazepam (Lorazepam 0.5 Mg Tab) 0.5 mg PO Q4 PRN PRN Reason: Anxiety Stop: 04/30/22 13:08 Magnesium Hydroxide (Magnesium Hydroxide Susp 30 Ml Udc) 30 ml PO DAILY PRN PRN Reason: Constipation Stop: 04/29/22 15:34 Sodium Chloride (Sodium Chloride 0.65% Na Soln 45 Ml ([place])) 1 - 2 sprays NA PRN PRN PRN Reason: Nasal Dryness/Congestion Stop: 04/29/22 15:34
[2022-03-31] MEDS: LORATADINE 10 MG TAB PO SCH (15:05)
[2022-03-31] MEDS: buPROPion XL 300 MG TABCR PO SCH (15:05)
[2022-03-31] MEDS: hydrOXYzine HCl 25 MG TAB PO PRN (21:48)
[2022-04-01] MEDS: LORATADINE 10 MG TAB PO SCH ×2 (08:58→09:03)
[2022-04-01] MEDS: buPROPion XL 300 MG TABCR PO SCH (08:58)
[2022-04-01] MEDS ORDERED: buPROPion XL 300 MG TABCR PO SCH (09:00)
[2022-04-01] MEDS ORDERED: LORATADINE 10 MG TAB PO PRN (10:31)
--- NOTE | 2022-04-01 17:56 | Psychiatric Progress Note ---
Date of Service April 01, 2022 Impression / Recommendations Impression 26 yo female with a history of recurring depression with some degree of seasonal component as well as anxiety and panic. Buspirone was stopped out of concern about temporal association between its addition and the rapid exacerbation of suicidality. Unclear to what extent this accounts for resolution of suicidality. (1) Major depression, recurrent: (2) LALY (generalized anxiety disorder): (3) Panic disorder: Plan 04/01/22: Extensive review of medication history. She prefers not to add new agents in light of her history of marked side effects with a range of psychiatric medications in the past so will continue bupropion XL 300 mg QAM with hydroxyzine 25 mg TID PRN. Will add omeprazole for gastric distress. Discussed CBT, which she is very interested in pursuing. Discussed phototherapy (primarily as an option for next fall). Although I do not believe there is any demonstrated association between low vitamin D levels and seasonal mood changes, such an association has been shown with depressive symptoms in general. Will check a level as well as vitamin B12 and folic acid. 03/31/2022: The patient was admitted to the [facility] ([facility] inpatient mental [facility] unit) on q15 min checks (behavioral with suicide precautions) for safety. The patient will participate in group, recreational, and milieu therapies and will be offered additional individual and family sessions as clinically appropriate. Pending availability of past med trials, will continue Wellbutrin XL 300 mg po qam. The patient responded well to this in the past and denies hx of seizures or ED symptoms. She has only been on the higher dose for 1 week. Given possible activation, d/c Buspar in favor of temporary use of prn Ativan 0.5 mg. Patient aware controlled/habit forming, and unclear if will be provided on discharge. Inventory Assets Strengths: intelligent, family oriented Needs: outpatient therapy, support in coping Suicide Risk Level Suicide Risk Level: Moderate (q15 min suicide checks) Risk Factors Assessment : Yes Do You Have Access To A Gun?: No Mental Health Diagnoses: Yes Substance Use Disorders: No Previous Attempt: No Family History of Suicide: No Previous Psychiatric Hospitalization: No Protective Factors Assessment Employed: Yes ([employer] works from home) Stable Relationships: Yes (but stressor) Supportive Family: Yes Interval History Identifying Information 26 y/o woman with a history of recurrent depression that tends to be worse in the summer and fall and better in the winter and spring who presented with worsened depression, panic, and intrusive suicidal thoughts Chief Complaint "Things have eased a bit". Review of Systems Notes Sleep improving. No longer having intrusive suicidal thoughts. Still endorses significant depressed mood and anxiety. No new or worse symptoms. Sleep Information Total Hours of Sleep: 6.5 Sleep Comments: Took Vistaril at [facility] Meal Information Percent Meal Consumed - Breakfast: 50 Percent Meal Consumed - Lunch: 100 Percent Meal Consumed - Dinner: 75 Subjective Subjective Patient was seen & assessed and interval progress reviewed with treatment team nursing and social work. She reports some increase in GI distress which in the past appears to have been associated with bupropion and has responded well to proton pump inhibitors. Medication Trials Review of medication history clearly demonstrates response to bupropion 300 mg/day after failed trials of numerous SSRI's, which appear to have precipitated suicidality. Recent addition of bupropion may have worsened suicidality. Her panic has responded well to hydroxyzine in the past, though it has been sedating enough to interfere with function at 25 mg/day dose. Does not appear to have tried any SNRI's. Physical Exam Psychiatric Orientation: alert and oriented x 3 Apperance: appropriately dressed and appropriately groomed Eye Contact: good eye contact Motor Behavior: no abnormal motor movements Speech: normal rate/rhythm/volume of speech Affect: + depressed affect Mood: + depressed mood Thought Process: goal directed thought process Thought Content: reality based without delusions Suicidal Thoughts: denies suicidal thoughts Homicidal Thoughts: denies homicidal thoughts Hallucinations: no auditory hallucinations and no visual hallucinations Cognition: attention grossly intact and language grossly intact Estimated Intelligence: consistent with education level Insight: + fair insight Judgement: + fair judgement Vital Signs (Past 24 Hours) Last Vital Signs Temp 36.8 C 04/01/22 06:39 Pulse 66 04/01/22 06:42 Resp 18 04/01/22 06:39 BP 96/66 L 04/01/22 06:42 Pulse Ox 99 03/30/22 16:26 O2 Del Method 03/30/22 16:26 Results & Data ([facility]) Current Inpatient Medications Current Inpatient Medications: Current Inpatient Medications Acetaminophen (Acetaminophen 325 Mg Tab) 650 mg PO Q4H PRN PRN Reason: Headache or Minor Fever Stop: 04/29/22 15:34 Last Admin: 03/30/22 17:46 Dose: 650 mg Al Hydrox/Mg Hydrox/Simethicone (Aluminum/Magnesium Susp 30 Ml Udc) 30 ml PO Q4H PRN PRN Reason: GI Upset Stop: 04/29/22 15:34 Bismuth Subsalicylate (Bismuth Subsalicylate Liqd 236 Ml) 15 ml PO PRN PRN PRN Reason: Loose Stool Stop: 04/29/22 15:34 Bupropion HCl (Bupropion Xl 300 Mg Tabcr) 300 mg PO QAM YAMILEX Stop: 04/30/22 13:59 Last Admin: 04/01/22 08:58 Dose: 300 mg Hydroxyzine HCl (Hydroxyzine Hcl 25 Mg Tab) 50 mg PO HSZ PRN PRN Reason: Insomnia Stop: 04/29/22 15:34 Last Admin: 03/31/22 21:48 Dose: 50 mg Loratadine (Loratadine 10 Mg Tab) 10 mg PO DAILY PRN PRN Reason: Allergy Symptoms Stop: 04/30/22 13:14 Lorazepam (Lorazepam 0.5 Mg Tab) 0.5 mg PO Q4 PRN PRN Reason: Anxiety Stop: 04/30/22 13:08 Magnesium Hydroxide (Magnesium Hydroxide Susp 30 Ml Udc) 30 ml PO DAILY PRN PRN Reason: Constipation Stop: 04/29/22 15:34 Sodium Chloride (Sodium Chloride 0.65% Na Soln 45 Ml ([place])) 1 - 2 sprays NA PRN PRN PRN Reason: Nasal Dryness/Congestion Stop: 04/29/22 15:34 Mental Health & Subst Abuse Tx Psychiatrist Name of Psychiatrist: [facility]- Intake with VASQUEZ Salas Psychiatrist's Date Of Appointment With Psychiatric Provider: 04/22/22 Time of Appointment with Psychiatrist: 12:15pm arrival for 12:30pm appt. [facility] Name of Therapist: [facility]- Intake with VASQUEZ Salas Therapist's Date of Therapist Appointment: 04/22/2022 Time of Therapist Appointment: 12:15pm arrival for 12:30pm appt. Therapy Appointment Comment: telehealth link will be texted to you School Superintendent Name of School Superintendent: None Post Discharge Appointments Primary Care Physician Name Of Family Doctor/PCP: Dr. Yamini Marino Time of Appointment with PCP: follow up as needed Contact Information Discharge Discharge Address: [address] [place] [id number]
[2022-04-01 19:56] LABS: Vitamin D, 25 Hydrox 13.8 ng/ml (30-100)
[2022-04-01] MEDS: hydrOXYzine HCl 25 MG TAB PO PRN (21:48)
[2022-04-02] MEDS: buPROPion XL 300 MG TABCR PO SCH (09:14)
--- NOTE | 2022-04-02 18:41 | Psychiatric Progress Note ---
Date of Service April 02, 2022 Impression / Recommendations Impression 04/02/22: Difficulty sleeping last night with limited benefit from hydroxyzine (nor any reported side effects). Discussed taking it earlier since in the past it's taken 2 hr for effect. Discussed her low vitamin D level. About half of [id number] time was spent addressing cognitive distortions. 04/01/22: 26 yo female with a history of recurring depression with some degree of seasonal component as well as anxiety and panic. Buspirone was stopped out of concern about temporal association between its addition and the rapid exacerbation of suicidality. Unclear to what extent this accounts for resolution of suicidality. (1) Major depression, recurrent: (2) LALY (generalized anxiety disorder): (3) Panic disorder: (4) Vitamin D deficiency: Plan 04/02/22: Add ergocalciferol 1.25 mg twice weekly. Increase hydroxyzine to 75 mg at bedtime. 04/01/22: Extensive review of medication history. She prefers not to add new agents in light of her history of marked side effects with a range of psychiatric medications in the past so will continue bupropion XL 300 mg QAM with hydroxyzine 25 mg TID PRN. Will add omeprazole for gastric distress. Discussed CBT, which she is very interested in pursuing. Discussed phototherapy (primarily as an option for next fall). Although I do not believe there is any demonstrated association between low vitamin D levels and seasonal mood changes, such an association has been shown with depressive symptoms in general. Will check a level as well as vitamin B12 and folic acid. 03/31/2022: The patient was admitted to the [facility] ([facility] mental health unit) on q15 min checks (behavioral with suicide precautions) for safety. The patient will participate in group, recreational, and milieu therapies and will be offered additional individual and family sessions as clinically appropriate. Pending availability of past med trials, will continue Wellbutrin XL 300 mg po qam. The patient responded well to this in the past and denies hx of seizures or ED symptoms. She has only been on the higher dose for 1 week. Given possible activation, d/c Buspar in favor of temporary use of prn Ativan 0.5 mg. Patient aware controlled/habit forming, and unclear if will be provided on discharge. Inventory Assets Strengths: intelligent, family oriented Needs: outpatient therapy, support in coping Suicide Risk Level Suicide Risk Level: Moderate (q15 min suicide checks) Risk Factors Assessment : Yes Do You Have Access To A Gun?: No Mental Health Diagnoses: Yes Substance Use Disorders: No Previous Attempt: No Family History of Suicide: No Previous Psychiatric Hospitalization: No Protective Factors Assessment Employed: Yes (P works from home) Stable Relationships: Yes (but stressor) Supportive Family: Yes Interval History Identifying Information 26 y/o woman with a history of recurrent depression that tends to be worse in the summer and fall and better in the winter and spring who presented with worsened depression, panic, and intrusive suicidal thoughts Chief Complaint "A little better". Review of Systems Sleep Information Total Hours of Sleep: 7 Sleep Comments: Took Vistaril at HS Meal Information Percent Meal Consumed - Breakfast: 25 Percent Meal Consumed - Lunch: 100 Percent Meal Consumed - Dinner: 40 Medication Trials Review of medication history clearly demonstrates response to bupropion 300 mg/day after failed trials of numerous SSRI's, which appear to have precipitated suicidality. Recent addition of bupropion may have worsened suicidality. Her panic has responded well to hydroxyzine in the past, though it has been sedating enough to interfere with function at 25 mg/day dose. Does not appear to have tried any SNRI's. Subjective Subjective Patient was seen & assessed and interval progress reviewed with treatment team nursing and social work Medication Trials Review of medication history clearly demonstrates response to bupropion 300 mg/day after failed trials of numerous SSRI's, which appear to have precipitated suicidality. Recent addition of bupropion may have worsened suicidality. Her panic has responded well to hydroxyzine in the past, though it has been sedating enough to interfere with function at 25 mg/day dose. Does not appear to have tried any SNRI's. Physical Exam Psychiatric Orientation: alert and oriented x 3 Apperance: appropriately dressed and appropriately groomed Eye Contact: good eye contact Motor Behavior: no abnormal motor movements Speech: normal rate/rhythm/volume of speech Affect: + depressed affect Mood: + depressed mood Thought Process: goal directed thought process Thought Content: reality based without delusions Suicidal Thoughts: denies suicidal thoughts Homicidal Thoughts: denies homicidal thoughts Hallucinations: no auditory hallucinations and no visual hallucinations Cognition: attention grossly intact and language grossly intact Estimated Intelligence: consistent with education level Insight: + fair insight Judgement: + fair judgement Vital Signs (Past 24 Hours) Last Vital Signs Temp 38.4 C H 04/02/22 06:39 Pulse 147 H 04/02/22 06:40 Resp 18 04/02/22 06:39 BP 92/57 L 04/02/22 06:40 Pulse Ox 99 03/30/22 16:26 O2 Del Method 03/30/22 16:26 Results & Data ([facility]) Laboratory Results Laboratory Results - last 24 hr 04/01/22 18:43 Vitamin B12 228 25-OH Vitamin D Total 13.8 L Folate 9.89 Current Inpatient Medications Current Inpatient Medications: Current Inpatient Medications Acetaminophen (Acetaminophen 325 Mg Tab) 650 mg PO Q4H PRN PRN Reason: Headache or Minor Fever Stop: 04/29/22 15:34 Last Admin: 03/30/22 17:46 Dose: 650 mg Al Hydrox/Mg Hydrox/Simethicone (Aluminum/Magnesium Susp 30 Ml Udc) 30 ml PO Q4H PRN PRN Reason: GI Upset Stop: 04/29/22 15:34 Last Admin: 04/01/22 18:26 Dose: 30 ml Bismuth Subsalicylate (Bismuth Subsalicylate Liqd 236 Ml) 15 ml PO PRN PRN PRN Reason: Loose Stool Stop: 04/29/22 15:34 Bupropion HCl (Bupropion Xl 300 Mg Tabcr) 300 mg PO QAM YAMILEX Stop: 04/30/22 13:59 Last Admin: 04/02/22 09:14 Dose: 300 mg Hydroxyzine HCl (Hydroxyzine Hcl 25 Mg Tab) 50 mg PO HSZ PRN PRN Reason: Insomnia Stop: 04/29/22 15:34 Last Admin: 04/01/22 21:48 Dose: 50 mg Loratadine (Loratadine 10 Mg Tab) 10 mg PO DAILY PRN PRN Reason: Allergy Symptoms Stop: 04/30/22 13:14 Lorazepam (Lorazepam 0.5 Mg Tab) 0.5 mg PO Q4 PRN PRN Reason: Anxiety Stop: 04/30/22 13:08 Magnesium Hydroxide (Magnesium Hydroxide Susp 30 Ml Udc) 30 ml PO DAILY PRN PRN Reason: Constipation Stop: 04/29/22 15:34 Sodium Chloride (Sodium Chloride 0.65% Na Soln 45 Ml ([place])) 1 - 2 sprays NA PRN PRN PRN Reason: Nasal Dryness/Congestion Stop: 04/29/22 15:34 Mental Health & Subst Abuse Tx Psychiatrist Name of Psychiatrist: [facility]- Intake with VASQUEZ Salas Psychiatrist's Date Of Appointment With Psychiatric Provider: 04/22/22 Time of Appointment with Psychiatrist: 12:15pm arrival for 12:30pm appt. [facility] The[facility]ist Name of Therapist: Rosemarie Psychiartry- Intake with VASQUEZ Salas Therapist's Date of Therapist Appointment: 04/22/2022 Time of Therapist Appointment: 12:15pm arrival for 12:30pm appt. Therapy Appointment Comment: telehealth link will be texted to you Pay Agent Name of Pay Agent: None Post Discharge Appointments Primary Care Physician Name Of Family Doctor/PCP: Dr. Yamini Marino Time of Appointment with PCP: follow up as needed Contact Information Discharge Discharge Address: Replaced by [facility] [address]. [place] [id number]
[2022-04-02] MEDS ORDERED: hydrOXYzine HCl 25 MG TAB PO PRN (18:46)
[2022-04-02] MEDS ORDERED: ERGOCALCIFEROL 50,000 UNITS 1250 MCG CAP PO SCH ×2 (19:00)
[2022-04-03] MEDS: buPROPion XL 300 MG TABCR PO SCH (08:48)
--- NOTE | 2022-04-03 11:23 | Psychiatric Progress Note ---
Date of Service April 03, 2022 Impression / Recommendations Impression 04/03/22: Reports ongoing gradual improvement. Has been tolerating medications well and attributes no adverse effects to them. Sleep was "a little better". No new or worse problems 04/02/22: Difficulty sleeping last night with limited benefit from hydroxyzine (nor any reported side effects). Discussed taking it earlier since in the past it's taken 2 hr for effect. Discussed her low vitamin D level. About half of [id number] time was spent addressing cognitive distortions. 04/01/22: 26 yo female with a history of recurring depression with some degree of seasonal component as well as anxiety and panic. Buspirone was stopped out of concern about temporal association between its addition and the rapid exacerbation of suicidality. Unclear to what extent this accounts for resolution of suicidality. (1) Major depression, recurrent: (2) LALY (generalized anxiety disorder): (3) Panic disorder: (4) Vitamin D deficiency: Plan 04/03/22: Increase hydroxyzine to 100 mg at bedtime 04/02/22: Add ergocalciferol 1.25 mg twice weekly. Increase hydroxyzine to 75 mg at bedtime. 04/01/22: Extensive review of medication history. She prefers not to add new agents in light of her history of marked side effects with a range of psychiatric medications in the past so will continue bupropion XL 300 mg QAM with hydroxyzine 25 mg TID PRN. Will add omeprazole for gastric distress. Discussed CBT, which she is very interested in pursuing. Discussed phototherapy (primarily as an option for next fall). Although I do not believe there is any demonstrated association between low vitamin D levels and seasonal mood changes, such an association has been shown with depressive symptoms in general. Will check a level as well as vitamin B12 and folic acid. 03/31/2022: The patient was admitted to the [facility] ([facility] mental health unit) on q15 min checks (behavioral with suicide precautions) for safety. The patient will participate in group, recreational, and milieu therapies and will be offered additional individual and family sessions as clinically appropriate. Pending availability of past med trials, will continue Wellbutrin XL 300 mg po qam. The patient responded well to this in the past and denies hx of seizures or ED symptoms. She has only been on the higher dose for 1 week. Given possible activation, d/c Buspar in favor of temporary use of prn Ativan 0.5 mg. Patient aware controlled/habit forming, and unclear if will be provided on discharge. Inventory Assets Strengths: intelligent, family oriented Needs: outpatient therapy, support in coping Suicide Risk Level Suicide Risk Level: Moderate (q15 min suicide checks) Risk Factors Assessment : Yes Do You Have Access To A Gun?: No Mental Health Diagnoses: Yes Substance Use Disorders: No Previous Attempt: No Family History of Suicide: No Previous Psychiatric Hospitalization: No Protective Factors Assessment Employed: Yes ([employer] works from home) Stable Relationships: Yes (but stressor) Supportive Family: Yes Interval History Identifying Information 26 y/o woman with a history of recurrent depression that tends to be worse in the summer and fall and better in the winter and spring who presented with worsened depression, panic, and intrusive suicidal thoughts Chief Complaint "Getting there". Review of Systems Sleep Information Total Hours of Sleep: 7.75 Sleep Comments: Took Vistaril at HS Meal Information Percent Meal Consumed - Breakfast: 25 Percent Meal Consumed - Lunch: 100 Percent Meal Consumed - Dinner: 40 Medication Trials Review of medication history clearly demonstrates response to bupropion 300 mg/day after failed trials of numerous SSRI's, which appear to have precipitated suicidality. Recent addition of bupropion may have worsened suicidality. Her panic has responded well to hydroxyzine in the past, though it has been sedating enough to interfere with function at 25 mg/day dose. Does not appear to have tried any SNRI's. Subjective Subjective Patient was seen & assessed and interval progress reviewed with treatment team nursing and social work Medication Trials Review of medication history clearly demonstrates response to bupropion 300 mg/day after failed trials of numerous SSRI's, which appear to have precipitated suicidality. Recent addition of bupropion may have worsened suicidality. Her panic has responded well to hydroxyzine in the past, though it has been sedating enough to interfere with function at 25 mg/day dose. Does not appear to have tried any SNRI's. Physical Exam Psychiatric Orientation: alert and oriented x 3 Apperance: appropriately dressed and appropriately groomed Eye Contact: good eye contact Motor Behavior: no abnormal motor movements Speech: normal rate/rhythm/volume of speech Affect: + depressed affect Mood: + depressed mood Thought Process: goal directed thought process Thought Content: reality based without delusions Suicidal Thoughts: denies suicidal thoughts Homicidal Thoughts: denies homicidal thoughts Hallucinations: no auditory hallucinations and no visual hallucinations Cognition: attention grossly intact and language grossly intact Estimated Intelligence: consistent with education level Insight: + fair insight Judgement: + fair judgement Vital Signs (Past 24 Hours) Last Vital Signs Temp 36.9 C 04/03/22 06:37 Pulse 92 H 04/03/22 06:38 Resp 16 04/03/22 06:37 BP 122/67 04/03/22 06:38 Pulse Ox 99 03/30/22 16:26 O2 Del Method 03/30/22 16:26 Results & Data ([facility]) Current Inpatient Medications Current Inpatient Medications: Current Inpatient Medications Acetaminophen (Acetaminophen 325 Mg Tab) 650 mg PO Q4H PRN PRN Reason: Headache or Minor Fever Stop: 04/29/22 15:34 Last Admin: 03/30/22 17:46 Dose: 650 mg Al Hydrox/Mg Hydrox/Simethicone (Aluminum/Magnesium Susp 30 Ml Udc) 30 ml PO Q4H PRN PRN Reason: GI Upset Stop: 04/29/22 15:34 Last Admin: 04/01/22 18:26 Dose: 30 ml Bismuth Subsalicylate (Bismuth Subsalicylate Liqd 236 Ml) 15 ml PO PRN PRN PRN Reason: Loose Stool Stop: 04/29/22 15:34 Bupropion HCl (Bupropion Xl 300 Mg Tabcr) 300 mg PO QAM [facility] Stop: 04/30/22 13:59 Last Admin: 04/03/22 08:48 Dose: 300 mg Ergocalciferol (Ergocalciferol 50,000 Units 1250 Mcg Cap) 50,000 units PO MoFr@0900 [facility] Stop: 05/02/22 18:59 Last Admin: 04/02/22 20:04 Dose: 50,000 units Hydroxyzine HCl (Hydroxyzine Hcl 25 Mg Tab) 75 mg PO HSZ PRN PRN Reason: Insomnia Stop: 04/29/22 15:34 Last Admin: 04/02/22 20:08 Dose: 75 mg Loratadine (Loratadine 10 Mg Tab) 10 mg PO DAILY PRN PRN Reason: Allergy Symptoms Stop: 04/30/22 13:14 Lorazepam (Lorazepam 0.5 Mg Tab) 0.5 mg PO Q4 PRN PRN Reason: Anxiety Stop: 04/30/22 13:08 Magnesium Hydroxide (Magnesium Hydroxide Susp 30 Ml Udc) 30 ml PO DAILY PRN PRN Reason: Constipation Stop: 04/29/22 15:34 Sodium Chloride (Sodium Chloride 0.65% Na Soln 45 Ml ([place])) 1 - 2 sprays NA PRN PRN PRN Reason: Nasal Dryness/Congestion Stop: 04/29/22 15:34 Mental Health & Subst Abuse Tx Psychiatrist Name of Psychiatrist: [facility]- Intake with VASQUEZ Salas Psychiatrist's Date Of Appointment With Psychiatric Provider: 04/22/22 Time of Appointment with Psychiatrist: 12:15pm arrival for 12:30pm appt. [facility] Therapist Name of Therapist: Rosemarie Psychiartry- Intake with VASQUEZ Salas Therapist's Date of Therapist Appointment: 04/22/2022 Time of Therapist Appointment: 12:15pm arrival for 12:30pm appt. Therapy Appointment Comment: telehealth link will be texted to you Histotechnologist Name of Histotechnologist: None Post Discharge Appointments Primary Care Physician Name Of Family Doctor/PCP: Dr. Yamini Marino Time of Appointment with PCP: follow up as needed Contact Information Discharge Discharge Address: [facility] [place] [id number]
[2022-04-03] MEDS ORDERED: hydrOXYzine HCl 25 MG TAB PO PRN (19:21)
[2022-04-04] MEDS: buPROPion XL 300 MG TABCR PO SCH (09:05)
--- NOTE | 2022-04-04 12:09 | Discharge Summary ---
Date of Service April 04, 2022 History of Present Illness Patient lives with her boyfriend of 6+ years. He has a history of cancer and has been dealing with a variety of somatic issues and was recently psychiatrically hospitalized for severe anxiety. He has since had a CT scan that showed a possible lesion on his liver which needs additional work up. This was "on top of everything else." Yesica reports feeling emotionally exhausted from trying to support him, her own fears about his conditon, and her own mental health issues. 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 They moved to [place] this summer for his work and she feels more isolated there as further from family in the [facility] area. There is enough concern about his safety/ability to function that she arranged for her mother to stay with him so she could seek treatment. The patient admitted in ED to having thoughts to cut or throat or crash her car. She does not have any history of SIB. Yesica has been tried on various antidepressants since high school and has done best on Wellbutrin, never previously experiencing SI on it despite taking it for years. She discontinued the 300 mg dose of Wellbutrin during COVID as she reports running out of refills and restarted at 150 mg a few months ago. She met with her PCP last week and the dose was increased to address worsening mood, tearfulness, anxiety, disrupted concentration making it harder to keep up with work and the dose was titrated. She was started on Buspar at the same time and perhaps is experiencing some jitteriness despite the low dose as she adds that "I wake up in a panic out of nowhere." Physical Exam Psychiatric Orientation: alert and oriented x 3 Apperance: appropriately dressed and appropriately groomed Eye Contact: good eye contact Motor Behavior: no abnormal motor movements Speech: normal rate/rhythm/volume of speech Affect: + depressed affect Mood: + depressed mood Thought Process: goal directed thought process Thought Content: reality based without delusions Suicidal Thoughts: denies suicidal thoughts Homicidal Thoughts: denies homicidal thoughts Hallucinations: no auditory hallucinations and no visual hallucinations Cognition: attention grossly intact and language grossly intact Estimated Intelligence: consistent with education level Insight: + fair insight Judgement: + fair judgement Vital Signs (Past 24 Hours) Last Vital Signs Temp 36.4 C L 04/04/22 06:43 Pulse 105 H 04/04/22 06:44 Resp 16 04/04/22 06:43 BP 126/73 04/04/22 06:44 Pulse Ox 99 03/30/22 16:26 O2 Del Method 03/30/22 16:26 Principal Diagnosis Recurrent Major Depression Psychiatric Data See daily stay summary. In short, safety was maintained and the patient was cooperative with care. Medication changes included [] and they tolerated this well. A family session was [held] and safety plan was completed prior to discharge. Day of Discharge Assessment Today the patient voices readiness for discharge. They note improvement in mood and deny thoughts to harm self or others. Thoughts remain organized and they are improved from admission. There is no evidence of psychosis. They agree to take mediations as prescribed and keep follow-up appointments. They are stable for discharge to outpatient level of care. Transition of Care Transition Of Care Record: was reviewed with the patient Advance Directives Advance Directives Information Provided: Yes Advance Directives: No Mental Health Advance Directive: No Living Will: No Power of Electric Meter Setter: No Advance Directives Reason:: Declines as Mental Health Visit. Suicide Risk Level Suicide Risk Level: Low (q15 min observation checks) Risk Factors Assessment Male: No : Yes Do You Have Access To A Gun?: No Mental Health Diagnoses: Yes Substance Use Disorders: No Previous Attempt: No Family History of Suicide: No Previous Psychiatric Hospitalization: No Protective Factors Assessment Employed: Yes ([employer] works from home) Stable Relationships: Yes (but stressor) Supportive Family: Yes Discharge Data Lab Results 03/30/22 03/30/22 03/30/22 12:00 12:00 12:00 WBC 7.68 RBC 5.12 Hgb 14.7 Hct 42.3 MCV 82.6 MCH 28.7 MCHC 34.8 RDW Std Deviation 37.4 RDW Coeff of Shabbir 12.4 Plt Count 409 H MPV 9.1 L Immature Gran % (Auto) 0.3 Neut % (Auto) 75.1 Lymph % (Auto) 17.4 [place] % (Auto) 6.5 Eos % (Auto) 0.3 Baso % (Auto) 0.4 Neut # (Auto) 5.77 Lymph # (Auto) 1.34 [place] # (Auto) 0.50 Eos # (Auto) 0.02 Baso # (Auto) 0.03 Immature Gran # (Auto) 0.02 Sodium 139 Potassium 3.5 Chloride 106 Carbon Dioxide 25 Anion Gap 8 BUN 7 Creatinine 0.84 Est Cr Clr Drug Dosing 108.8 Est GFR ( Amer) 110.4 Est GFR (Non-Af Amer) 95.3 BUN/Creatinine Ratio 8.3 L Glucose 90 Calcium 9.4 Total Bilirubin 1.2 H AST 14 ALT 9 Alkaline Phosphatase 60 Total Protein 7.5 Albumin 5.0 Globulin 2.5 Albumin/Globulin Ratio 2.0 Vitamin B12 25-OH Vitamin D Total Folate TSH 0.915 Urine Color Urine Appearance Urine pH Ur Specific [place] Urine Protein Urine Glucose (UA) Urine Ketones Urine Blood Urine Nitrite Urine Bilirubin Urine Urobilinogen Ur Leukocyte Esterase Urine WBC (Auto) Urine RBC (Auto) U Hyaline Cast (Auto) U Epithel Cells (Auto) Urine Bacteria (Auto) Urine Test Salicylates Urine Opiates Screen Ur Methadone, Qual Acetaminophen Urine Barbiturates Ur Phencyclidine (PCP) U Amphetamin/Meth Scrn MDMA (Ecstasy) Screen U Benzodiazepines Scrn Ur Cocaine Metabolite U Marijuana (THC) Screen Ethyl Alcohol mg/dL SARS-CoV-2, RNA, NAAT 03/30/22 03/30/22 03/30/22 12:00 12:00 12:00 WBC RBC Hgb Hct MCV MCH MCHC RDW Std Deviation RDW Coeff of Shabbir Plt Count MPV Immature Gran % (Auto) Neut % (Auto) Lymph % (Auto) Def[place] % (Auto) Eos % (Auto) Baso % (Auto) Neut # (Auto) Lymph # (Auto) [place] # (Auto) Eos # (Auto) Baso # (Auto) Immature Gran # (Auto) Sodium Potassium Chloride Carbon Dioxide Anion Gap BUN Creatinine Est Cr Clr Drug Dosing Est GFR ( Amer) Est GFR (Non-Af Amer) BUN/Creatinine Ratio Glucose Calcium Total Bilirubin AST ALT Alkaline Phosphatase Total Protein Albumin Globulin Albumin/Globulin Ratio Vitamin B12 25-OH Vitamin D Total Folate TSH Urine Color Yellow Urine Appearance Clear Urine pH 6.0 Ur Specific [place] 1.019 Urine Protein Negative Urine Glucose (UA) Negative Urine Ketones 1+ H Urine Blood Negative Urine Nitrite Negative Urine Bilirubin Negative Urine Urobilinogen Negative Ur Leukocyte Esterase Trace H Urine WBC (Auto) 1-5 Urine RBC (Auto) 0-4 U Hyaline Cast (Auto) 1-5 U Epithel Cells (Auto) 10-20 H Urine Bacteria (Auto) Negative Urine Test Salicylates < 3.0 L Urine Opiates Screen Ur Methadone, Qual Acetaminophen < 3 L Urine Barbiturates Ur Phencyclidine (PCP) U Amphetamin/Meth Scrn MDMA (Ecstasy) Screen U Benzodiazepines Scrn Ur Cocaine Metabolite U Marijuana (THC) Screen Ethyl Alcohol mg/dL < 10.0 SARS-CoV-2, RNA, NAAT 03/30/22 03/30/22 03/30/22 12:00 12:00 12:00 WBC RBC Hgb Hct MCV MCH MCHC RDW Std Deviation RDW Coeff of Shabbir Plt Count MPV Immature Gran % (Auto) Neut % (Auto) Lymph % (Auto) [place] % (Auto) Eos % (Auto) Baso % (Auto) Neut # (Auto) Lymph # (Auto) [place] # (Auto) Eos # (Auto) Baso # (Auto) Immature Gran # (Auto) Sodium Potassium Chloride Carbon Dioxide Anion Gap BUN Creatinine Est Cr Clr Drug Dosing Est GFR ( Amer) Est GFR (Non-Af Amer) BUN/Creatinine Ratio Glucose Calcium Total Bilirubin AST ALT Alkaline Phosphatase Total Protein Albumin Globulin Albumin/Globulin Ratio Vitamin B12 25-OH Vitamin D Total Folate TSH Urine Color Urine Appearance Urine pH Ur Specific [place] Urine Protein Urine Glucose (UA) Urine Ketones Urine Blood Urine Nitrite Urine Bilirubin Urine Urobilinogen Ur Leukocyte Esterase Urine WBC (Auto) Urine RBC (Auto) U Hyaline Cast (Auto) U Epithel Cells (Auto) Urine Bacteria (Auto) Urine Test Negative Salicylates Urine Opiates Screen Neg Ur Methadone, Qual Neg Acetaminophen Urine Barbiturates Neg Ur Phencyclidine (PCP) Neg U Amphetamin/Meth Scrn Neg MDMA (Ecstasy) Screen Neg U Benzodiazepines Scrn Neg Ur Cocaine Metabolite Neg U Marijuana (THC) Screen Neg Ethyl Alcohol mg/dL SARS-CoV-2, RNA, NAAT NEGATIVE 04/01/22 18:43 WBC RBC Hgb Hct MCV MCH MCHC RDW Std Deviation RDW Coeff of Shabbir Plt Count MPV Immature Gran % (Auto) Neut % (Auto) Lymph % (Auto) [place] % (Auto) Eos % (Auto) Baso % (Auto) Neut # (Auto) Lymph # (Auto) [place] # (Auto) Eos # (Auto) Baso # (Auto) Immature Gran # (Auto) Sodium Potassium Chloride Carbon Dioxide Anion Gap BUN Creatinine Est Cr Clr Drug Dosing Est GFR ( Amer) Est GFR (Non-Af Amer) BUN/Creatinine Ratio Glucose Calcium Total Bilirubin AST ALT Alkaline Phosphatase Total Protein Albumin Globulin Albumin/Globulin Ratio Vitamin B12 228 25-OH Vitamin D Total 13.8 L Folate 9.89 TSH Urine Color Urine Appearance Urine pH Ur Specific [place] Urine Protein Urine Glucose (UA) Urine Ketones Urine Blood Urine Nitrite Urine Bilirubin Urine Urobilinogen Ur Leukocyte Esterase Urine WBC (Auto) Urine RBC (Auto) U Hyaline Cast (Auto) U Epithel Cells (Auto) Urine Bacteria (Auto) Urine Test Salicylates Urine Opiates Screen Ur Methadone, Qual Acetaminophen Urine Barbiturates Ur Phencyclidine (PCP) U Amphetamin/Meth Scrn MDMA (Ecstasy) Screen U Benzodiazepines Scrn Ur Cocaine Metabolite U Marijuana (THC) Screen Ethyl Alcohol mg/dL SARS-CoV-2, RNA, NAAT Hospital Course (1) Major depression, recurrent: (2) LALY (generalized anxiety disorder): (3) Panic disorder: (4) Vitamin D deficiency: Plan 04/03/22: Increase hydroxyzine to 100 mg at bedtime 04/02/22: Add ergocalciferol 1.25 mg twice weekly. Increase hydroxyzine to 75 mg at bedtime. 04/01/22: Extensive review of medication history. She prefers not to add new agents in light of her history of marked side effects with a range of psychiatric medications in the past so will continue bupropion XL 300 mg QAM with hydroxyzine 25 mg TID PRN. Will add omeprazole for gastric distress. Discussed CBT, which she is very interested in pursuing. Discussed phototherapy (primarily as an option for next fall). Although I do not believe there is any demonstrated association between low vitamin D levels and seasonal mood changes, such an association has been shown with depressive symptoms in general. Will check a level as well as vitamin B12 and folic acid. 03/31/2022: The patient was admitted to the [facility] ([facility] mental health unit) on q15 min checks (behavioral with suicide precautions) for safety. The patient will participate in group, recreational, and milieu therapies and will be offered additional individual and family sessions as clinically appropriate. Pending availability of past med trials, will continue Wellbutrin XL 300 mg po qam. The patient responded well to this in the past and denies hx of seizures or ED symptoms. She has only been on the higher dose for 1 week. Given possible activation, d/c Buspar in favor of temporary use of prn Ativan 0.5 mg. Patient aware controlled/habit forming, and unclear if will be provided on discharge. Mental Health & Subst Abuse Tx Psychiatrist Name of Psychiatrist: [facility]- Intake with VASQUEZ Salas Psychiatrist's Date Of Appointment With Psychiatric Provider: 04/22/22 Time of Appointment with Psychiatrist: 12:15pm arrival for 12:30pm appt. Psychiatric Appointment Comment: telehealtl link will be texted Therapist Name of Therapist: [facility]- Intake with VASQUEZ Salas Therapist's Date of Therapist Appointment: 04/22/2022 Time of Therapist Appointment: 12:15pm arrival for 12:30pm appt. Therapy Appointment Comment: telehealth link will be texted to you Glove Finisher Name of Glove Finisher: None Post Discharge Appointments Primary Care Physician Name Of Family Doctor/PCP: Dr. Yamini Marino Time of Appointment with PCP: follow up as needed Contact Information Discharge Discharge Address: [address] [place] [address]. [place] [address] Discharge Plan Discharge Items Patient Disposition: Home - Self-Care Reason For Visit: MDD Discharge Diagnosis: Banana allergy Condition on Discharge: Good Activity: Resume your previous activity Driving/Machine Use: No limitations Non-emergency contact: Primary Care Provider and Psychiatrist Call non-emergency contact if: you have any medication questions and your symptoms worsen Follow-up/Referrals: Yamini Marino, [Primary Care Provider] - Diet: Regular Addtl Attending Provider Instructions: SPECIAL CARE INSTRUCTIONS: 1. Follow through with your scheduled aftercare appointments. If unable to keep an appointment, please call to reschedule. 2. Take your medication only as prescribed. Medication should not be changed or stopped without the approval of your doctor. In the event of worsening symptoms or concerns about side effects, contact your doctor immediately. 3. Utilize new healthy coping skills, anger management skills, and stress management skills learned during your hospitalization. Journal feelings and process them with a support person. Identify stressors or situations that may result in relapse, deterioration or inappropriate behaviors and develop a plan to deal with those issues. 4. If your coping skills are ineffective and you are in crisis, contact your outpatient providers for direction. If unable to reach your providers, please call the [facility] CRISIS LINE AT , go to the [facility] walk-in center at [address], [address], [place], or go to the closest Emergency Room. 5. Avoid alcohol and un-prescribed drugs. 6. You have been provided with the Mental Health Advance Directives Pamphlet for your review. 7. Your condition is stable for discharge to outpatient level of care, but recovery is an ongoing process. Ifthoughts to harm yourself or others return, follow the safety plan developed during your stay. Planning for a safe return home includes securing weapons. Our treatment team recommends weaponsbe removed from the home until your outpatient provider reassesses your progress. In rare cases where the items themselvescannot be removed, guns and ammunitionshould be secured separatelyand keys stored by a reliable personoutside of the home. If you were admitted on an involuntary commitment, the police or other legal authorities may be involved in this process. AFTERCARE APPOINTMENTS: * Please call your insurance company prior to your scheduled appointment to confirm your aftercare providers are covered. Take your insurance information to your appointments. WHO TO CALL AND WHEN: Medical Emergencies: For questions or emergencies related to your hospital stay, please contact the Inpatient Behavioral Health Unit at [phone]. A vp of technology is on-call 27/09 for the Behavioral Health Unit for emergencies At any time you feel your situation is an emergency, you may also call 911 immediately. Addtl Master Motorcycle Technician Provider Instructions: Vitamin D deficiecy: Continue Vitamin D2 (ergocalciferol) 50,000 IU 91.25 mg) by mouth twice a week (Tuesday and Tuesday work well) for a total of 8 weeks. This means finishing the prescription. Once that is complete, start [id number] Vitamin D3 (cholecalciferol) 5,000 IU by mouth once a day indefinitely. Once you've been on the Vitamin D3 for a month (a total of 3 months from now), you should have a blood test to determine if your level is in the target range of 30-100 g/mL. I noted that Vitamin D3 is non-formulary on your plan. If you have difficulty getting it, you can take [id number] Vitamin D3 15,000 IU every day. This will total 105,000 IU per week, which is very close to the 100,000 IU per week that the prescription would provide. It would be very difficult to find 15,000 IU capsules, but 5,000 IU capsules are very easy to find and you could just take 3 of those every day. Pending Studies at Discharge: No Stand-Alone Forms: My [facility] Medications and DC Order Prescriptions: New lorazepam 0.5 mg Tablet 0.5 mg PO QID PRN (Reason: anxiety) 30 Days Qty: 30 0RF ergocalciferol (vitamin D2) 1,250 mcg (50,000 unit) Capsule 50,000 unit PO MoFr@0900 56 Days Qty: 16 0RF Continued hydroxyzine HCl 25 mg tablet 25 mg PO TID PRN (Reason: Anxiety) loratadine [Claritin] 10 mg Tablet 10 mg PO DAILY bupropion HCl 300 mg tablet extended release 24 hr 300 mg PO QAM Discontinued buspirone 5 mg tablet 5 mg PO BID Discharge Orders: Discharge Order (Routine); Ordered 04/04/22 Ordered By: Chato Nava Admission Data Admit Date/Time: 03/30/22 15:35 Attending Provider: Chato Nava Admit Provider: Mildred Arroyo Primary Care Provider: Yamini Marino Other Interventions: Discharge Summary Assessment (RN) Last Done: 04/04/22 12:19 PSY Interdisciplinary Discharge Planning Last Done: 04/04/22 12:21 Coding Level of Care Code 21894 D/C day mgmt > 30 min Diagnoses Major depression, recurrent F33.9 LALY (generalized anxiety disorder) F41.1 Panic disorder F41.0 Vitamin D deficiency E55.9 Time Spent (min) 40
[2022-04-05] MEDS ORDERED: hydrOXYzine HCl 25 MG TAB PO PRN (10:52)
== END 2022-04-04 13:02 | disposition home or self-care (01) | DRG 885 ==
LOC: ED 11:45 → SUATTDRO 15:35 → 3S 15:35